=== PATIENT | female | born 1990 | race Hispanic/Latino ===

== ENCOUNTER 2020-01-25 09:51 | Outpatient (CLI) | payer OTHER ==
[2020-01-26 13:43] LABS: SARS-CoV-2 MS2 Positive; SARS-CoV-2 N Gene Positive; SARS-CoV-2 S Gene Positive; SARS-CoV-2 orf1ab Positive
== END 2020-01-25 09:52 | disposition home or self-care (01) ==
LOC: LABSCS 09:51
PROVIDERS: ATTEND Family Medicine
DX: Z01.812 Encounter for preprocedural laboratory examination (principal); Z11.59 Encounter for screening for other viral diseases
CPT/HCPCS: 87635; U0003

== ENCOUNTER 2020-01-26 10:14 | Inpatient (IN) | payer MEDICAID, OTHER ==
[2020-01-26] MEDS ORDERED: Bicitra 30 ML UDCUP ONE (11:44)
[2020-01-26] MEDS ORDERED: Promethazine HCl 25 MG/ML VIAL IM PRN (11:48)
[2020-01-26] MEDS ORDERED: Ondansetron PF 4 MG/2 ML Vial IVP PRN (11:48)
[2020-01-26] MEDS ORDERED: Butorphanol Tartrate 1 MG/ML VIAL SLOW IVP PRN (11:48)
[2020-01-26] MEDS ORDERED: Carboprost 250 MCG/ML AMP IM PRN (11:48)
[2020-01-26] MEDS ORDERED: Lidocaine 1% (PF) 30 ML VIAL SC PRN (11:48)
[2020-01-26] MEDS ORDERED: hydrALAZINE 20 MG/ML VIAL SLOW IVP PRN ×3 (11:48→18:35)
[2020-01-26] MEDS ORDERED: Acetaminophen 500 MG TAB PO PRN (11:48)
[2020-01-26] MEDS ORDERED: Methylergonovine 0.2 MG/ML VIAL IM PRN ×2 (11:48→18:35)
[2020-01-26] MEDS ORDERED: Ibuprofen 800 MG TAB PO PRN (11:48)
[2020-01-26] MEDS ORDERED: Misoprostol 200 MCG TAB PR PRN (11:48)
[2020-01-26] MEDS ORDERED: Diphenoxylate HCl/Atropine Tablet PO PRN (11:48)
[2020-01-26] MEDS ORDERED: Docusate 100 MG CAP PO PRN (11:48)
--- NOTE | 2020-01-26 11:48 | PDOC.LDHP ---
Labor and Delivery H&P Chief complaint: contractions HPI: Pt is a 29yo at 39.4wga by 6.3week sono who presents with complaints of contractions. They started this morning at 5 am and were about 10-15 minutes apart. She said they got closer together, to about 5 minutes apart, which prompted her to come in to triage. She was scheduled for a mIOL for A1GDM on . Patient's baby is SGA- Hadlock at 33.5wga was 16%. Patient was referred to [facility] for possible megacytis, but was normal. No other complaints today. She endorses good movement, no vaginal bleeding, and she states that she thinks her water broke when she arrived at triage. Current gestational age (weeks): 39 (.4) Due date: 01/29/20 Dating criteria: first trimester ultrasound Grav: 2 Para: 1 OB History Details: prior uncomplicated Current complications: gestational diabetes, other (SGA: Hadlock 16% at 33.5wga) Abnormal US findings: Yes (as per HPI- possible megacytis. Follow up with [facility] was normal) Past Medical History: denies Current medications: pre-aury vitamins Previous surgical history: none (denies) Allergies/Adverse Reactions: Allergies Allergy/AdvReac Type Severity Reaction Status Date / Time No Known Allergies Allergy Verified 01/26/20 10:48 Social history: none - Physical Exam General: NAD Heart: RRR Lungs: nonlabored breathing Abdomen: gravid Extremeties: no edema FHT: category 1, variability present [place] contractions every: 5min - Vaginal Exam cm dilated: 5 Effacement: 100% Station: -1 - OB Labs Blood type: O RH: positive Antibody Screen: negative HIV: negative RPR: negative HEPSAg: negative GBS: negative Rubella: immune Additional Labs: Varicella IgG positive, 2hr GTT 76/216/172 - Assessment L&D Assessment: term patient in labor - Plan Plan: admit to L&D, labor augmentation if indicated -: Term , in labor Admit to L&D recheck in 2 hours patient does not desire an epidural augment as needed anticipate normal A1GDM 2hr GTT failed Diet controlled, sugars controlled SGA baby Hadlock 16% on 33.5wga ultrasound Anemia of 01/07/2020 H/H was 10.1/31/3 patient on PNV asymptomatic, continue to monitor This case was discussed with my attending Dr. Sanz, who agreed with plan and assessment. Radha Garza PGY-1
[2020-01-26] MEDS ORDERED: Lactated Ringer's 1,000 ML IV SCH (12:00)
[2020-01-26] MEDS ORDERED: NS w/ Oxytocin 10 units 500 ML IV SCH ×2 (12:00)
[2020-01-26 12:37] LABS: Hemoglobin 11.5 g/dL (12.0-16.0); Mean Corpuscular HGB CONC 32.3 g/dL (32.0-36.0); Mean Corpuscular Hemoglobin 24.9 pg (27.0-31.0); Mean Corpuscular Volume 77.3 fL (78.0-98.0); Mean Platelet Volume 10.3 fL (7.4-10.4); Platelet Count 393 thou/uL (130-400); RBC Distribution Width 15.2 % (11.5-14.5); Red Blood Cell (RBC) Count 4.62 mill/uL (4.20-5.40); White Blood Cell (WBC) Count 14.9 thou/uL (4.8-10.8)
[2020-01-26 12:48] VITALS: BMI 33.7
[2020-01-26 13:17] LABS: HBSAg Index 0.14 S/CO (0-0.99); Hep B Surf Ag Non-Reactive S/CO (NonReactive)
[2020-01-26 14:04] LABS: Syphilis Antibody Nonreactive (Nonreactive); Syphilis Antibody Index 0.05 S/CO (<1.00 Non-Reactive)
--- NOTE | 2020-01-26 14:28 | PDOC.LDPN ---
Labor & Delivery Progress Note - Subjective Subjective: painful contractions, vaginal pressure - Objective Vital signs reviewed and normal: yes General: breathing through contractions Effacement: 100% Station: 0 FHT: category 1 (140bpm moderate variability) [place] contractions every: 3 min Plan: continue plan of care -: Term , in labor Nurse checked at 1315 with a check of 7-8/100/0; patient called out to nurse at this time with the urge to push. Patient also requested a squatting delivery using the squat bars in the bed. Recheck at 1415 was 8/100/0 recheck q 1 hr or as patient increased pressure patient does not desire an epidural augment as needed anticipate normal A1GDM 2hr GTT failed Diet controlled, sugars controlled SGA baby [place] 16% on 33.5wga ultrasound Anemia of 01/07/2020 H/H was 10. patient on PNV asymptomatic, continue to monitor This case was discussed with my attending Dr. Sanz, who agreed with plan and assessment. Radha Garza PGY-1
[2020-01-26] MEDS: NS / Oxytocin 40 units/1000ml 1,000 ML IV PRN ×2 (15:35→16:32)
[2020-01-26] MEDS ORDERED: Milk Of Magnesia 30 ML UDCUP PO PRN (18:35)
[2020-01-26] MEDS ORDERED: NS / Oxytocin 40 units/1000ml 1,000 ML IV SCH (18:35)
[2020-01-26] MEDS ORDERED: Preparation H Ointment 28 GM TUBE PR PRN (18:35)
[2020-01-26] MEDS ORDERED: Lanolin Ointment 7 GM TUBE TOP PRN (18:35)
[2020-01-26] MEDS ORDERED: Bisacodyl 10 MG SUPP PR PRN (18:35)
[2020-01-26] MEDS ORDERED: Misoprostol 200 MCG TAB VAG PRN (18:35)
[2020-01-26] MEDS: Docusate Calcium (SURFAK) 240 MG CAP PO SCH (21:34)
[2020-01-26] MEDS: Ibuprofen 800 MG TAB PO SCH (21:34)
[2020-01-26] MEDS: Ferrous Sulfate 325 MG TAB PO SCH (22:42)
[2020-01-27] MEDS: Ibuprofen 800 MG TAB PO SCH ×2 (05:49→14:20)
--- NOTE | 2020-01-27 06:22 | PDOC.PP ---
Post Progress Note Post Day #: 1 Subjective: yesterday with 2nd degree lac. Since mother has been doing well. has been incidentally found to be COVID +. she denies any sx of this including SOB, cough , chest pain, fever, chills, N/V/D. Baby rooming with mother breast and bottle feeding. Mother tolerating PO well. No BM yet. PO intake tolerated: yes Flatus: no Ambulation: yes (minimal within room) Vital Signs (12 hours) Temp Pulse Resp BP Pulse Ox 01/27/20 04:30 98.2 F 59 L 14 117/60 01/27/20 00:00 98.2 F 58 L 14 113/54 L 01/26/20 21:15 98.7 F 64 16 111/60 01/26/20 20:15 99.3 F 66 16 120/63 98 Weight Weight 63.503 kg - Physical Examination General: NAD Cardiovascular: no m/r/g Respiratory: clear to auscultation bilaterally, non-labored breathing Abdominal: + bowel sounds, appropriately TTP Skin: no rash Neurological: no gross focal deficits Psychiatric: A&Ox3 Result Diagrams: 01/26/20 12:29 Additional Labs: Post Labs Blood Type O POSITIVE 01/26/20 14:41 Hep Bs Antigen Non-Reactive S/CO (NonReactive) 01/26/20 12:28 - Assessment/Plan PPD#1 following and 2nd degree lac - progressing well - minimal lochia - doing well with baby - plans to follow up with sissy in [facility] COVID + - Currently completely asymptomatic - Exam is normal - Will hold off on any additional treatments including steroids, anticoagulation - VTE prophylaxis with SCD A1GDM - Glucose has been largley WNL - Will continue scheduled glucose monitoring for now so we can better assess how pt will do as an outpt Plan: Continue routine pp care. Likely DC home tomorrow with baby pending bili. Mckinley Jimenez PGY2
--- NOTE | 2020-01-27 07:23 | OP ---
DATE OF PROCEDURE: 01/26/2020 DELIVERING PHYSICIAN: 1. Shaunna Tuttle, PGY-3. 2. Radha Garza, PGY-1. ATTENDING PHYSICIAN: Dr. John Sanz. PROCEDURE PERFORMED: Spontaneous vaginal delivery. ANESTHESIA: Local lidocaine for repair. QBL: 150 mL. PREOPERATIVE DIAGNOSES: 1. Term intrauterine , in labor. 2. A1 gestational diabetes. 3. Small for gestational age baby. 4. Anemia of . POSTOPERATIVE DIAGNOSES: 1. Term intrauterine , delivered. 2. A1 gestational diabetes. 3. Small for gestational age baby. 4. Anemia of . INDICATIONS: A 29-year-old G2, P1001 female, presents in active labor in L&D with a cervical check of 5/ 80/-1 and contractions occurring every 5 minutes. DELIVERY NOTE: This is a 29-year-old female, G2, P1, at 39 and 3 weeks, who delivered a viable female at 1528 following an uneventful antepartum course. A vigorous female was delivered over an intact perineum in the OA position. Anterior shoulder and the remainder of the body delivered. No nuchal cord. The head was held down and mouth and nares were bulb suctioned. The cord clamped after delayed cord clamping and cut and cord blood collected. Placenta delivered intact in the Jimenez presentation with a 3-vessel cord noted. Fundal massage was performed and the fundus was firm. The cervix and vagina were inspected and found to have a second-degree laceration. It was repaired with 3-0 Vicryl in the usual fashion with good approximation and hemostasis after lidocaine was injected at the site. Infant went to nursery in good condition for routine care. Apgars were 9 and 9 at one and five minutes respectively. The patient tolerated delivery well and went to after routine recovery care. Patient was found to be COVID positive after delivery. Job ID: [id number] [facility]
[2020-01-27] MEDS: Ferrous Sulfate 325 MG TAB PO SCH ×2 (07:33→15:20)
[2020-01-27] MEDS ORDERED: Adacel (T-DAP) 0.5 ML SYRINGE IM ONE (09:00)
[2020-01-27] MEDS ORDERED: Prenatal Vitamin 1 TAB PO SCH (09:00)
[2020-01-27] MEDS: Docusate Calcium (SURFAK) 240 MG CAP PO SCH (09:17)
[2020-01-27 15:24] VITALS: TEMP 98.8
[2020-01-27 16:47] VITALS: BP 123/63
== END 2020-01-27 19:15 | disposition home or self-care (01) | DRG 805 ==
LOC: L&D/OP 10:14 → L&D 12:40 → 3SW 18:14
PROVIDERS: ADMIT Family Medicine; ATTEND Family Medicine
PROC: 10E0XZZ Delivery of Products of Conception, External Approach (ICD-10-PCS; principal; 2020-01-26)
PROC: 0KQM0ZZ Repair Perineum Muscle, Open Approach (ICD-10-PCS; 2020-01-26)
PROC: 8E0ZXY6 Isolation (ICD-10-PCS; 2020-01-26)
DX: O24.420 Gestational diabetes mellitus in childbirth, diet controlled (principal); O75.3 Other infection during labor; Z37.0 Single live birth; U07.1 COVID-19; O36.5930 Maternal care for other known or suspected poor fetal growth, third trimester, not applicable or unspecified; O99.02 Anemia complicating childbirth; D64.9 Anemia, unspecified; O70.1 Second degree perineal laceration during delivery; Z3A.39 39 weeks gestation of pregnancy
CPT/HCPCS: 36415; 36416; 85027; 86780; 86850; 86900; 86901; 87340; 99285; J0690; J2001